=== PATIENT | male | born 1985 | race Caucasian/White ===

== ENCOUNTER 2016-05-08 09:53 | Emergency (ER) | payer SELFPAY ==
[~2016-05-08] VITALS: Ht 170.2 cm; Wt 95.3 kg
--- NOTE | 2016-05-08 09:57 | NUR ---
PT BIB FAMILY CC HEADACHES, SWOLLEN NECK LYMPH NODES, PRODUCTIVE COUGH x 6 MONTHS. PT AMBULATORY STEADY GAIT. PER PATIENT "LYMPH NODES MORE SWOLLEN IN AM". PT ALSO VERBALIZED DIFFICULTY SWALLOWING. PLACED PT ON MONITOR. VSS. AWAITING MD ORDER.
--- NOTE | 2016-05-08 10:16 | NUR ---
BLOOD SAMPLE COLLECTED BY CUSTOMER EXPERIENCE INTERN AT BEDSIDE SENT TO LAB
[2016-05-08 10:25] LABS: BASOPHILS # (AUTO) 0.1 /CMM (0.0-0.2); BASOPHILS % (AUTO) 0.3 % (0.0-2.0); EOSINOPHILS # (AUTO) 0.1 /CMM (0.0-0.7); EOSINOPHILS % (AUTO) 0.4 % (0.0-6.0); HEMATOCRIT 48 % (39-51); LYMPHOCYTES # (AUTO) 1.5 /CMM (0.8-4.8); LYMPHOCYTES % (AUTO) 9.3 % (20.0-44.0); MEAN CORPUSCULAR HEMOGLOBIN 29 PG (26.0-33.0); MEAN CORPUSCULAR HGB CONC 34 g/dl (31.0-36.0); MEAN CORPUSCULAR VOLUME 86 fL (80-96); MONOCYTES % (AUTO) 6.2 % (2.0-12.0); NEUTROPHILS # (AUTO) 13.1 /CMM (1.8-8.9); NEUTROPHILS % (AUTO) 83.8 % (43.0-81.0); PLATELET COUNT (AUTO) 234 /CMM (150-450); RDW COEFFICIENT OF VARIATION 12.9 (11.5-15.0); RED BLOOD CELL COUNT(AUTO) 5.59 MIL/uL (4.5-6.0); WHITE BLOOD COUNT (AUTO) 15.7 K/uL (4.3-11.0)
[2016-05-08 10:37] LABS: CALCIUM, SERUM 9.6 mg/dL (8.5-10.1); POTASSIUM 3.9 mmol/L (3.5-5.1)
[2016-05-08 10:43] LABS: ALBUMIN 4.2 g/dL (3.4-5.0); BILIRUBIN,TOTAL 0.4 mg/dL (0.2-1.0); TOTAL PROTEIN, SERUM 8.4 g/dL (6.4-8.2)
--- NOTE | 2016-05-08 11:45 | NUR ---
NEW BLOOD SAMPLE COLLECTED BY LAB AT BEDSIDE
[2016-05-08] MEDS ORDERED: ACETAMINOPHEN ES 500 MG TABLET ONE (12:22)
[2016-05-08] MEDS ORDERED: ACETAMINOPHEN ES 500 MG TABLET PO ONE (13:00)
--- NOTE | 2016-05-08 13:59 | NUR ---
Patient discharged to home in stable condition. Written and verbal after care instructions given. Patient verbalizes understanding of instruction. Prescription given to patient.
[2016-05-08 14:00] VITALS: BP 130/75
== END 2016-05-08 14:01 | disposition home or self-care (01) ==
LOC: ER 09:55
DX: J02.9 Acute pharyngitis, unspecified (principal)
CPT/HCPCS: 36415; 71010; 80053; 85025; 86308; 87070; 87880; 99285; A4606; Z7610; 86403-TC

== ENCOUNTER 2018-05-22 21:55 | Emergency (ER) | payer SELFPAY ==
[~2018-05-22] VITALS: Ht 170.2 cm; Wt 113.4 kg
--- NOTE | 2018-05-22 22:31 | NUR ---
pt bib friend from home for back pain, seen at [facility] today, states no relief; pt aaox4, pt on monitor, vss, nad noted, pending md gomez
[2018-05-23] MEDS ORDERED: KETOROLAC TROMETHAMINE INJ 30 MG/ML VIAL IM ONE
[2018-05-23] MEDS ORDERED: CYCLOBENZAPRINE 10 MG TABLET PO ONE
[2018-05-23 00:06] LABS: CALCIUM, SERUM 8.8 mg/dL (8.5-10.1); CREATININE 0.8 mg/dL (0.6-1.3); POTASSIUM 4.5 mmol/L (3.5-5.1)
[2018-05-23 00:11] LABS: ALBUMIN 3.8 g/dL (3.4-5.0); BASOPHILS # (AUTO) 0.1 /CMM (0.0-0.2); BASOPHILS % (AUTO) 0.7 % (0.0-2.0); BILIRUBIN,DIRECT 0.1 mg/dL (0.0-0.2); BILIRUBIN,TOTAL 0.5 mg/dL (0.2-1.0); EOSINOPHILS % (AUTO) 0.9 % (0.0-6.0); HEMATOCRIT 46 % (39-51); HEMOGLOBIN 15.6 g/dL (13.5-17.5); LYMPHOCYTES # (AUTO) 2.3 /CMM (0.8-4.8); LYMPHOCYTES % (AUTO) 15.1 % (20.0-44.0); MEAN CORPUSCULAR HGB CONC 34 g/dl (31.0-36.0); MEAN CORPUSCULAR VOLUME 88 fL (80-96); MONOCYTES # (AUTO) 1.4 /CMM (0.1-1.30); MONOCYTES % (AUTO) 9.3 % (2.0-12.0); NEUTROPHILS # (AUTO) 11.2 /CMM (1.8-8.9); PLATELET COUNT (AUTO) 244 /CMM (150-450); RED BLOOD CELL COUNT(AUTO) 5.22 MIL/uL (4.5-6.0); TOTAL PROTEIN, SERUM 8.2 g/dL (6.4-8.2); WHITE BLOOD COUNT (AUTO) 15.2 K/uL (4.3-11.0)
[2018-05-23] MEDS ORDERED: KETOROLAC TROMETHAMINE INJ 30 MG/ML VIAL ONE (00:16)
[2018-05-23] MEDS ORDERED: CYCLOBENZAPRINE 10 MG TABLET ONE (00:17)
[2018-05-23 00:19] LABS: APPEARANCE,URINE Clear (CLEAR); BILIRUBIN,URINE SMALL (NEGATIVE); BLOOD, URINE Negative Ery/uL (NEGATIVE); COLOR,URINE Yellow (YELLOW); KETONES,URINE Trace (NEGATIVE); LEUKOCYTE ESTERASE ,URINE Negative (NEGATIVE); NITRITE, URINE Negative (NEGATIVE); PROTEIN,URINE Trace mg/dl (NEGATIVE); UGLUCOSE Negative (NEGATIVE)
[2018-05-23 00:31] LABS: BACTERIA,URINE None seen /HPF (None Seen); MUCUS,URINE Rare /LPF (None Seen); RBC,URINE 0-2 /HPF (0-2); SQUAMOUS EPITHELIAL CELL,UR Few /HPF (None Seen); WBC,URINE 0-2 /HPF (0-3)
--- NOTE | 2018-05-23 02:09 | NUR ---
report given to amara eastman for alfredo
[2018-05-23 04:01] VITALS: BP 133/81
== END 2018-05-23 04:01 | disposition home or self-care (01) ==
LOC: ER 22:13
DX: R50.9 Fever, unspecified (principal); R05 Cough; M54.5 Low back pain; G89.29 Other chronic pain; Z90.89 Acquired absence of other organs
CPT/HCPCS: 36415; 71045; 80048; 80076; 81001; 83605; 85025; 93005; 96372; 99284; J1885; 81000-TC

== ENCOUNTER 2018-06-27 18:01 | Emergency (ER) | payer SELFPAY ==
[~2018-06-27] VITALS: Ht 172.7 cm; Wt 113.4 kg
[2018-06-27 18:22] VITALS: BP 138/87
--- NOTE | 2018-06-27 18:22 | NUR ---
PT Left Foot pain "Slipped 1H ago at [facility]- twisted left Foot/[place] crack" PT IS AAOX4, NOT IN RESPIRATORY DISTRESS, V/S STABLE, KEPT RESTED AND COMFORTABLE, WILL CONTINUE TO MONITOR.
[2018-06-27] MEDS ORDERED: HYDROCODONE/APAP 5/325MG 1 EACH TABLET PO ONE (18:30)
--- NOTE | 2018-06-27 18:32 | NUR ---
CORE PASTER AT BEDSIDE FOR XRAY.
[2018-06-27] MEDS ORDERED: HYDROCODONE/APAP 5/325MG 1 EACH TABLET ONE (18:56)
--- NOTE | 2018-06-27 19:32 | NUR ---
REPORT GIVEN TO KENROY TINAJERO FOR CLAU.
== END 2018-06-27 20:12 | disposition home or self-care (01) ==
LOC: ER 18:01
DX: S82.292A Other fracture of shaft of left tibia, initial encounter for closed fracture (principal); G89.29 Other chronic pain; Z90.89 Acquired absence of other organs; X50.1XXA Overexertion from prolonged static or awkward postures, initial encounter; Y93.89 Activity, other specified; Y92.89 Other specified places as the place of occurrence of the external cause; Y99.8 Other external cause status
CPT/HCPCS: 73610-TC

== ENCOUNTER 2018-07-14 21:58 | Emergency (ER) | payer SELFPAY ==
[~2018-07-14] VITALS: Ht 167.6 cm; Wt 108.9 kg
[2018-07-14] MEDS ORDERED: ONDANSETRON HCL/PF 4 MG/2 ML VIAL ONE (23:23)
[2018-07-14] MEDS ORDERED: MORPHINE SULFATE INJ 4 MG/ML DISP.SYRIN ONE (23:23)
[2018-07-14] MEDS: ONDANSETRON HCL/PF 4 MG/2 ML VIAL IV ONE (23:26)
[2018-07-14] MEDS ORDERED: MORPHINE SULFATE INJ 2 MG/ML DISP.SYRIN IV ONE (23:30)
[2018-07-14] MEDS ORDERED: IV NS 0.9% 1,000 ML BAG IV ONE (23:30)
[2018-07-14] MEDS ORDERED: ONDANSETRON HCL/PF 4 MG/2 ML VIAL IVP ONE (23:30)
--- NOTE | 2018-07-14 23:41 | NUR ---
MIDABD PAIN, N/V X TODAY, FREQUENT DIARRHEA, NO BLOOD IN STOOLS. PT AAOX4, VSS. DENIES CP, SOB, DIZZINESS AT THIS TIME. PT SEEN & EVAL'D BY DR. GUZMAN. MEDICATED ORDERED & WILL CONT TO MONITOR.
[2018-07-14 23:45] LABS: BASOPHILS % (AUTO) 0.3 % (0.0-2.0); EOSINOPHILS % (AUTO) 1.1 % (0.0-6.0); HEMATOCRIT 46 % (39-51); HEMOGLOBIN 15.8 g/dL (13.5-17.5); LYMPHOCYTES # (AUTO) 1.4 /CMM (0.8-4.8); LYMPHOCYTES % (AUTO) 19.2 % (20.0-44.0); MEAN CORPUSCULAR HGB CONC 34 g/dl (31.0-36.0); MEAN CORPUSCULAR VOLUME 88 fL (80-96); MONOCYTES # (AUTO) 0.7 /CMM (0.1-1.30); MONOCYTES % (AUTO) 9.3 % (2.0-12.0); NEUTROPHILS # (AUTO) 5.2 /CMM (1.8-8.9); NEUTROPHILS % (AUTO) 70.1 % (43.0-81.0); PLATELET COUNT (AUTO) 199 /CMM (150-450); RED BLOOD CELL COUNT(AUTO) 5.23 MIL/uL (4.5-6.0); WHITE BLOOD COUNT (AUTO) 7.5 K/uL (4.3-11.0)
[2018-07-15] LABS: CALCIUM, SERUM 8.6 mg/dL (8.5-10.1); CREATININE 0.8 mg/dL (0.6-1.3); POTASSIUM 3.9 mmol/L (3.5-5.1)
[2018-07-15 00:06] LABS: ALBUMIN 3.8 g/dL (3.4-5.0); BILIRUBIN,DIRECT 0.1 mg/dL (0.0-0.2); BILIRUBIN,TOTAL 0.5 mg/dL (0.2-1.0)
[2018-07-15 01:09] LABS: APPEARANCE,URINE Clear (CLEAR); BILIRUBIN,URINE SMALL (NEGATIVE); BLOOD, URINE Negative Ery/uL (NEGATIVE); COLOR,URINE Dark (YELLOW); KETONES,URINE Negative (NEGATIVE); LEUKOCYTE ESTERASE ,URINE Negative (NEGATIVE); NITRITE, URINE Negative (NEGATIVE); PROTEIN,URINE Trace mg/dl (NEGATIVE); UGLUCOSE Negative (NEGATIVE)
[2018-07-15 01:38] LABS: BACTERIA,URINE Few /HPF (None Seen); RBC,URINE 0-2 /HPF (0-2); SQUAMOUS EPITHELIAL CELL,UR Rare /HPF (None Seen)
--- NOTE | 2018-07-15 01:58 | NUR ---
Patient ambulatory w/ steady gait, resp even & unlabored, denies any pain, no active N/V at this time w/ nad noted. IV removed. Catheter intact and site benign. Pressure and 4x4 applied to site. No bleeding noted. Patient discharged to home in stable condition. Written and verbal after care instructions given. Patient verbalizes understanding of instruction.
[2018-07-15 01:59] VITALS: BP 138/78
[2018-07-15] MEDS: ONDANSETRON HCL/PF 4 MG/2 ML VIAL IV ONE (02:03)
== END 2018-07-15 02:01 | disposition home or self-care (01) ==
LOC: ER 22:08
DX: A08.4 Viral intestinal infection, unspecified (principal); Z90.89 Acquired absence of other organs
CPT/HCPCS: 36415; 74176; 80048; 80076; 81001; 83690; 85025; 85730; 96361; 96374; 96375; 99284; J2270; J2405; J7030; 81000-TC

== ENCOUNTER 2018-09-22 23:31 | Emergency (ER) | payer SELFPAY ==
[~2018-09-22] VITALS: Ht 170.2 cm; Wt 99.8 kg
[2018-09-22 23:51] VITALS: BP 156/96
[2018-09-23] MEDS ORDERED: DEXAMETHASONE SOD PHOSPHATE 10 MG/ML VIAL ONE (00:10)
[2018-09-23] MEDS ORDERED: HYDROCODONE/APAP 5/325MG 1 EACH TABLET ONE (00:10)
[2018-09-23] MEDS ORDERED: CARISOPRODOL 350 MG TABLET ONE (00:10)
--- NOTE | 2018-09-23 00:17 | NUR ---
Patient discharged to home in stable condition. Written and verbal after care instructions given. Patient verbalizes understanding of instruction.Pt ambulatory with limp but steady gait
[2018-09-23] MEDS ORDERED: DEXAMETHASONE SOD PHOSPHATE 4 MG/ML VIAL IM ONE (00:30)
[2018-09-23] MEDS ORDERED: CARISOPRODOL 350 MG TABLET PO ONE (00:30)
[2018-09-23] MEDS ORDERED: HYDROCODONE/APAP 5/325MG 1 EACH TABLET PO ONE (00:30)
== END 2018-09-23 00:20 | disposition home or self-care (01) ==
LOC: ER 23:35
DX: M54.41 Lumbago with sciatica, right side (principal); M62.830 Muscle spasm of back; Z90.89 Acquired absence of other organs
CPT/HCPCS: 96372; 99283; J1100

== ENCOUNTER 2018-11-03 20:13 | Emergency (ER) | payer MEDICAID ==
[~2018-11-03] VITALS: Ht 170.2 cm; Wt 113.4 kg
--- NOTE | 2018-11-03 22:21 | NUR ---
BIBF. C/O "HAVING HEADACHE AND DIZZINESS X4 HR" -SOB AOX4. -NEURO DEFICIT. VSS AT THIS TIME.
[2018-11-03] MEDS ORDERED: LORAZEPAM 1 MG TABLET PO ONE (22:30)
[2018-11-03] MEDS ORDERED: IBUPROFEN 600 MG TABLET PO ONE ×2 (22:30→23:02)
[2018-11-03] MEDS ORDERED: LORAZEPAM 1 MG TABLET ONE (23:01)
[2018-11-04 00:08] VITALS: BP 131/81
== END 2018-11-04 00:09 | disposition home or self-care (01) ==
LOC: ER 20:20
DX: F41.9 Anxiety disorder, unspecified (principal); G89.29 Other chronic pain; Z90.89 Acquired absence of other organs

== ENCOUNTER 2019-09-05 21:08 | Emergency (ER) | payer MEDICAID ==
[~2019-09-05] VITALS: Ht 170.2 cm; Wt 127.0 kg
[2019-09-05 21:21] VITALS: BP 129/76
--- NOTE | 2019-09-05 23:24 | NUR ---
Patient discharged to home in stable condition. Written and verbal after care instructions given. Patient verbalizes understanding of instruction. Pt ambulatory with a steady gait
== END 2019-09-05 23:25 | disposition home or self-care (01) ==
LOC: ER 21:11
DX: U07.1 COVID-19 (principal); M79.10 Myalgia, unspecified site
CPT/HCPCS: 71045; 99284; C9803; U0003

== ENCOUNTER 2020-02-27 23:53 | Emergency (ER) | payer MEDICAID ==
[~2020-02-27] VITALS: Ht 170.2 cm; Wt 127.0 kg
[2020-02-28 00:37] VITALS: BP 142/98
== END 2020-02-28 00:46 | disposition home or self-care (01) ==
LOC: ER 23:55
DX: J02.9 Acute pharyngitis, unspecified (principal); M79.18 Myalgia, other site; Z90.89 Acquired absence of other organs

== ENCOUNTER 2020-05-07 17:01 | Emergency (ER) | payer MEDICAID ==
[~2020-05-07] VITALS: Ht 170.2 cm; Wt 127.0 kg
--- NOTE | 2020-05-07 17:28 | NUR ---
PT BIB C/O CHRONIC LOWER BACK PAIN FROM A WORK RELATED INJURY 2 YEARS AGO. PT DENIES ANY RECENT INJURY BUT STATES HIS PAIN IS GETTING WORST AND IBUPROFEN NOT HELPING. STABLE VITALS. AWAITING MD JONES.
--- NOTE | 2020-05-07 18:13 | NUR ---
CASSI DOUGLAS AT BEDSIDE FOR EVAL.
[2020-05-07] MEDS ORDERED: CYCL10TA9 PO (18:17)
[2020-05-07] MEDS ORDERED: NAPR-1164 PO (18:17)
[2020-05-07] MEDS ORDERED: DEXAMETHASONE SOD PHOSPHATE 10 MG/ML VIAL ONE (18:22)
[2020-05-07] MEDS ORDERED: KETOROLAC TROMETHAMINE INJ 30 MG/ML VIAL ONE (18:22)
[2020-05-07] MEDS ORDERED: HYDROCODONE/APAP 10/325MG TABLET ONE (18:22)
[2020-05-07] MEDS ORDERED: DEXAMETHASONE SOD PHOSPHATE 4 MG/ML VIAL IM ONE (18:30)
[2020-05-07] MEDS ORDERED: KETOROLAC TROMETHAMINE INJ 60 MG/2 ML VIAL IM ONE (18:30)
[2020-05-07] MEDS ORDERED: HYDROCODONE/APAP 10/325MG TABLET PO ONE (18:30)
[2020-05-07] MEDS ORDERED: HYDR-4303 PO (19:22)
[2020-05-07 19:36] VITALS: BP 124/71
--- NOTE | 2020-05-07 19:36 | NUR ---
Patient discharged to home in stable condition. Written and verbal after care instructions given. Patient verbalizes understanding of instruction. Pt ambulated out of ED. VSS.
== END 2020-05-07 19:37 | disposition home or self-care (01) ==
LOC: ER 17:05
DX: M54.5 Low back pain (principal); G89.29 Other chronic pain; M51.36 Other intervertebral disc degeneration, lumbar region; M54.16 Radiculopathy, lumbar region; E66.01 Morbid (severe) obesity due to excess calories; R00.0 Tachycardia, unspecified; Z68.41 Body mass index [BMI] 40.0-44.9, adult; Z90.89 Acquired absence of other organs; Z79.899 Other long term (current) drug therapy
CPT/HCPCS: 96372 ×2; 99284; J1100; J1885

== ENCOUNTER 2020-06-19 21:17 | Emergency (ER) | payer MEDICAID ==
[~2020-06-19] VITALS: Ht 170.2 cm; Wt 136.1 kg
[~2020-06-19 21:17] MED LIST: CYCL10TA9 PO; HYDR-4303 PO; NAPR-1164 PO
--- NOTE | 2020-06-19 21:55 | NUR ---
BIBSELF FROM HOME WITH C/O OF LOW BS PER PATIENT THE READING IS 35 ALSO COMPLAINING OF SORETHROAT AND HEAD ACHE X1 MONTH, NO COUGH, RESPIRATION EVEN AND UNLABORED, ON ROOM AIR SPO2 98% V/S CHECKED AND RECORDED WILL CONT TO MONITOR
[2020-06-19 22:21] LABS: BASOPHILS # (AUTO) 0.1 /CMM (0.0-0.2); BASOPHILS % (AUTO) 0.6 % (0.0-2.0); EOSINOPHILS % (AUTO) 1.3 % (0.0-6.0); HEMATOCRIT 45 % (39-51); HEMOGLOBIN 15.4 g/dL (13.5-17.5); LYMPHOCYTES # (AUTO) 2.3 /CMM (0.8-4.8); LYMPHOCYTES % (AUTO) 24.2 % (20.0-44.0); MEAN CORPUSCULAR HGB CONC 34 g/dl (31.0-36.0); MEAN CORPUSCULAR VOLUME 89 fL (80-96); MONOCYTES # (AUTO) 0.8 /CMM (0.1-1.30); MONOCYTES % (AUTO) 8.3 % (2.0-12.0); NEUTROPHILS # (AUTO) 6.3 /CMM (1.8-8.9); NEUTROPHILS % (AUTO) 65.6 % (43.0-81.0); PLATELET COUNT (AUTO) 254 /CMM (150-450); RED BLOOD CELL COUNT(AUTO) 5.09 MIL/uL (4.5-6.0); WHITE BLOOD COUNT (AUTO) 9.6 K/uL (4.3-11.0)
[2020-06-19 22:30] LABS: CALCIUM, SERUM 9.1 mg/dL (8.5-10.1); CREATININE 0.9 mg/dL (0.6-1.3); POTASSIUM 3.8 mmol/L (3.5-5.1)
[2020-06-19] MEDS ORDERED: IV NS 0.9% 500 ML BAG IV ONE (22:30)
[2020-06-19 22:36] LABS: ALBUMIN 3.7 g/dL (3.4-5.0); BILIRUBIN,TOTAL 0.2 mg/dL (0.2-1.0); TOTAL PROTEIN, SERUM 7.6 g/dL (6.4-8.2)
[2020-06-19 22:47] LABS: ALBUMIN 3.7 g/dL (3.4-5.0); BILIRUBIN,TOTAL 0.2 mg/dL (0.2-1.0); TOTAL PROTEIN, SERUM 7.5 g/dL (6.4-8.2)
[2020-06-19 23:02] VITALS: BP 144/75
--- NOTE | 2020-06-19 23:05 | NUR ---
Patient discharged to home in stable condition. Written and verbal after care instructions given. Patient verbalizes understanding of instruction.IV removed. Catheter intact and site benign. Pressure and 4x4 applied to site. No bleeding noted.Mr Geraldo Marion is ambulatory with a steady gait walking to Exit.
== END 2020-06-19 23:06 | disposition home or self-care (01) ==
LOC: ER 21:17
DX: E16.2 Hypoglycemia, unspecified (principal); M54.9 Dorsalgia, unspecified; Z90.89 Acquired absence of other organs; Z79.899 Other long term (current) drug therapy
CPT/HCPCS: 36415; 80053; 80076; 82962; 83690; 85025; 87070; 87804 ×2; 87880; 99283; J7040; 86403-TC

== ENCOUNTER 2021-08-11 13:38 | Emergency (ER) | payer MEDICAID ==
[~2021-08-11] VITALS: Ht 167.6 cm; Wt 93.4 kg
[2021-08-11 14:02] VITALS: BP 152/84
[2021-08-11] MEDS ORDERED: LORA-259 PO (15:09)
[2021-08-11] MEDS ORDERED: AZIT250T13 PO (15:09)
--- NOTE | 2021-08-11 15:20 | NUR ---
Patient discharged to home in stable condition. Written and verbal after care instructions given. Patient verbalizes understanding of instruction.
== END 2021-08-11 15:20 | disposition home or self-care (01) ==
LOC: ER 13:43
DX: R05.9 Cough, unspecified (principal); Z90.89 Acquired absence of other organs; Z79.899 Other long term (current) drug therapy
CPT/HCPCS: 71045-TC

== ENCOUNTER 2023-09-20 20:46 | Emergency (ER) | payer MEDICAID ==
[~2023-09-20] VITALS: Ht 170.2 cm; Wt 136.1 kg
[~2023-09-20 20:46] MED LIST changes: +AZIT250T13 PO; +LORA-259 PO
[2023-09-20] MEDS ORDERED: KETOROLAC TROMETHAMINE INJ 30 MG/ML VIAL ONE (22:15)
[2023-09-20] MEDS ORDERED: CYCLOBENZAPRINE 10 MG TABLET ONE (22:15)
[2023-09-20] MEDS: CYCLOBENZAPRINE 10 MG TABLET PO ONE (22:18)
[2023-09-20] MEDS: KETOROLAC TROMETHAMINE INJ 30 MG/ML VIAL IM ONE (22:18)
[2023-09-21] MEDS ORDERED: CYCL5TAB PO (00:33)
[2023-09-21 00:59] VITALS: BP 135/72; TEMP 98.1; O2SAT 95
== END 2023-09-21 00:59 | disposition home or self-care (01) ==
LOC: ER 20:50
DX: M25.532 Pain in left wrist (principal); M25.512 Pain in left shoulder; M54.50 Low back pain, unspecified; Z90.49 Acquired absence of other specified parts of digestive tract; V43.52XA Car driver injured in collision with other type car in traffic accident, initial encounter; Y93.89 Activity, other specified; Y92.488 Other paved roadways as the place of occurrence of the external cause; Y99.8 Other external cause status
CPT/HCPCS: 99285; 72131; 96372; 73030; 73110; J1885

== ENCOUNTER 2024-10-18 11:25 | Emergency (ER) | payer MEDICAID, OTHER ==
[~2024-10-18] VITALS: Ht 170.2 cm; Wt 145.1 kg
[~2024-10-18 11:25] MED LIST changes: +CYCL5TAB PO
[2024-10-18] MEDS ORDERED: IBUPROFEN 600 MG TABLET ONE (11:47)
[2024-10-18] MEDS: IBUPROFEN 600 MG TABLET PO ONE (11:49)
[2024-10-18] MEDS ORDERED: NAPR-1164 PO (12:57)
[2024-10-18] MEDS ORDERED: ACETAMINOPHEN ES 500 MG TABLET ONE (13:09)
[2024-10-18] MEDS: ACETAMINOPHEN ES 500 MG TABLET PO ONE (13:10)
[2024-10-18 13:11] VITALS: BP 141/87; TEMP 98.5; O2SAT 99
== END 2024-10-18 13:14 | disposition home or self-care (01) ==
LOC: ER 11:29
DX: M79.671 Pain in right foot (principal); E11.9 Type 2 diabetes mellitus without complications; Z90.49 Acquired absence of other specified parts of digestive tract; Z79.899 Other long term (current) drug therapy
CPT/HCPCS: 73630-TC